=== PATIENT | female | born 1990 | race Caucasian/White ===

== ENCOUNTER 2018-09-15 17:44 | Emergency (ER) | payer OTHER ==
[~2018-09-15] VITALS: Ht 160 cm; Wt 54.4 kg
--- NOTE | 2018-09-15 17:46 | NUR ---
ED Nurse Note: pt brought in by [facility] for medical clearance, c/o left lateral rib pain started today, no recent injuries, denies sob. pt AA&ox4, gcs=15, skin warm and dry, resp even and unlabored on RA, -n/v/d, ambulates w/ steady gait, will cont monitor.
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
[2018-09-15 17:49] VITALS: BP 110/68
[2018-09-15] MEDS ORDERED: HYDROcodone/Acetamin 7.5/325 tab ORAL ONE (18:15)
--- NOTE | 2018-09-15 18:15 | NUR ---
ED Nurse Note: pt refused norco states she needs something stronger, norco doesn't work. ER provider notified.
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
--- NOTE | 2018-09-15 18:26 | NUR ---
ED Nurse Note: pt refused toradol medication, states she doesn't want it. ER provider notified.
[2018-09-15] MEDS: Ketorolac 30mg Inj IM ONE ×2 (18:33→18:47)
--- NOTE | 2018-09-15 18:50 | NUR ---
ED Nurse Note: pt refused to go X-Ray, she states she doesn't want to do it. ER provider notified.
[2018-09-15 18:53] VITALS: BP 119/67
--- NOTE | 2018-09-15 18:53 | NUR ---
ED Nurse Note: pt cleared to be d/c per ER Provider, pt discharge and after care instruction provided to [employer] officers, pt advised to follow up with custodial medical staff. pt verbalized understanding. pt was escorted by [employer] officers, left w/ all belongings.
== END 2018-09-15 18:53 ==
LOC: EDBD 17:44 → EMR 17:55
DX: R07.81 Pleurodynia (principal)
CPT/HCPCS: 81025; 99283